=== PATIENT | male | born 1975 | race African-American/Black ===

== ENCOUNTER 2017-10-15 07:53 | Emergency (ER) | payer SELFPAY ==
[~2017-10-15] VITALS: Ht 185.4 cm; Wt 95.3 kg
[2017-10-15 08:00] VITALS: BP 156/102
--- NOTE | 2017-10-15 08:00 | NUR ---
Intermittent L Lower back pain x 3 days, denies any injury.Pt associates pain with cold weather.
[2017-10-15] MEDS ORDERED: HYDROCODONE/APAP 5/325MG 1 EACH TABLET ONE (08:29)
[2017-10-15] MEDS ORDERED: HYDROCODONE/APAP 5/325MG 1 EACH TABLET PO ONE (08:30)
--- NOTE | 2017-10-15 09:16 | NUR ---
PT. VERBALIZED UNDERSTANDING OF AFTERCARE INSTRUCTIONS.Patient discharged to home in stable condition. Written and verbal after care instructions given. Patient verbalizes understanding of instruction.
--- NOTE | 2017-10-15 09:17 | NUR ---
PATIENT INSTRUCTED NOT TO DRIVE. RELATIVE ARRIVED TO ED TO TRANSPORT PT HOME
== END 2017-10-15 09:17 | disposition home or self-care (01) ==
LOC: ER 07:55
DX: M54.42 Lumbago with sciatica, left side (principal)
CPT/HCPCS: 99283; A4606; Z7610